=== PATIENT | female | born 1975 | race Caucasian/White ===

== ENCOUNTER 2016-09-30 20:28 | Emergency (ER) | payer OTHER ==
--- NOTE | 2016-09-30 21:48 | ED CLINICAL REPORT ---
Clinical Report - Physicians/Mid Levels [facility] [address] [place] [address] 09/30/2016 20:28 Patient: MARY LOU KILPATRICK Time Seen: 2030; upon arrival, initial patient contact, initial documentation, patient care assumed. Arrived- By private vehicle. Historian- patient. HISTORY OF PRESENT ILLNESS Chief Complaint: COUGH, SINUS PAIN and "FLU". This started about 4 days ago and is still present. It was abrupt in onset. The illness is described as moderate. The patient has had a cough, a sore throat, nasal congestion, sinus pressure and sinus drainage. She has had fever and ear pain. No sputum production, difficulty breathing, chest discomfort or pain or muscle aches. Additional history - The patient has had contact with a sick coworker. Similar symptoms previously: None. Recent medical care: Not recently seen/assessed. REVIEW OF SYSTEMS The patient has had nausea and mild, constant abdominal pain. The pain is described as located in the left lower quadrant. She has had vomiting (none today, several times yesterday). She has had mild diarrhea (x2-3 episodes today). This has occurred several times. It has been watery. No bloody, mucous containing or blood-tinged diarrhea. Denies current . All systems otherwise negative, except as recorded above. PAST HISTORY See nurses notes. PROBLEMS: Hyperemesis Gravidarum. --20:33 Lei Sprague R.N. ADDITIONAL SURGERIES: Appendectomy. Bowel Surgery. Carpal Tunnel Surgery. . Miscarriages. --20:33 Lei Sprague R.N. Partial hysterectomy. --20:34 Lei Sprague R.N. SOCIAL HISTORY Never smoker. Not exposed to second-hand smoke at home. No alcohol use or drug use. No recent travel. Is a local resident. She lives with spouse. FAMILY HISTORY Negative. ADDITIONAL NOTES The nursing notes have been reviewed with agreement regarding the chief complaint, HPI, ROS, PMH and patient medications and allergies. PHYSICAL EXAM Vital Signs: 09/30/2016 20:31 BP: 124/61. HR: 77. RR: 16. O2 saturation: 98%. Temp: 98.3 F. Pain level now: 12/30. Have been reviewed as normal and appear to be correct. Appearance: Alert. No acute distress. Head: Tenderness present to percussion/palpation of the sinuses: mild right and left frontal tenderness, maxillary tenderness, ethmoid tenderness. Eyes: Pupils equal, round and reactive to light. Eyes normal inspection. ENT: Ears normal. Nose abnormal. Pharynx normal. Uvula midline. Normal ear exam. No nasal discharge. Neck: Normal inspection. Neck supple. CVS: Normal heart rate and rhythm. Heart sounds normal. Pulses normal. Respiratory: No respiratory distress. Breath sounds normal. Abdomen: Soft and nontender. No organomegaly. Back: Normal inspection. Skin: Skin warm and dry. Normal skin color. No rash. Normal skin turgor. Extremities: Extremities exhibit normal ROM. No lower extremity edema. Neuro: Oriented X 3. No motor deficit. No sensory deficit. LABS, X-RAYS, AND EKG Laboratory Tests: UA-Culture if indicated: (MANUELA: 09/30/2016 21:05) ( [facility] 09/30/2016 21:34) Final results Test Result Flag Units (Reference) URINE COLOR YELLOW URINE APPEARANCE CLEAR URINE GLUCOSE NEGATIVE (NEGATIVE) URINE BILIRUBIN NEGATIVE (NEGATIVE) URINE KETONE NEGATIVE (NEGATIVE) URINE SPECIFIC GRAVITY 1.015 (1.010-1.030) URINE PH 8.0 (5.0-8.0) URINE PROTEIN NEGATIVE (NEGATIVE) URINE UROBILINOGEN 0.2 EU/dL (0.2-1.0) URINE NITRITE NEGATIVE (NEGATIVE) URINE BLOOD NEGATIVE (NEGATIVE) URINE LEUK ESTERASE NEGATIVE (NEGATIVE) URINE RBC 1-3 rbc/hpf (0-1) URINE WBC 0-1 wbc/hpf (0-1) URINE EPITHELIAL CELLS 1-3 EPI/hpf (0-5) URINE BACTERIA FEW (1+) (NONE SEEN) URINE COMMENT CULT NOT INDICATED 1+ AMOPHOUSURINE CULTURES ARE SET-UP BASED ON THE FOLLOWING CRITERIA:POSITIVE NITRITEPOSITIVE LEUKOCYTE ESTERASEGREATER THAN 10 WHITE BLOOD CELLSMODERATE (2+) OR GREATER BACTERIA Urine: (MANUELA: 09/30/2016 21:05) ( MsgRcvd 09/30/2016 21:29) Final results Test Result Flag Units (Reference) URINE NEGATIVE CBC w Diff: (MANUELA: 09/30/2016 20:50) ( [facility] 09/30/2016 21:06) Final results Test Result Flag Units (Reference) WHITE BLOOD COUNT 9.1 K/uL (4.5-11.5) RED BLOOD COUNT 5.24 H M/uL (4.00-5.20) HEMOGLOBIN 12.3 gm/dL (12.0-16.0) HEMATOCRIT 38.1 % (36.0-46.0) MEAN CELL VOLUME 73 L fL (80-100) MEAN CORPUSCULAR HGB 23 L pg (26-34) MEAN CORPUSCULAR HGB CONC 32 g/dL (31-37) RED CELL DISTRIBUTION WIDTH 17.0 H % (11.6-14.8) PLATELET COUNT 301 K/uL (150-400) NEUTROPHIL % 66.1 % (50-75) LYMPH % 25.7 % (25-40) MONO % 5.5 % (3-14) EOSINOPHIL % 2.0 % (0-4) BASOPHIL % 0.7 % (0-2) CMP: (MANUELA: 09/30/2016 20:50) ( NegRcvd 09/30/2016 21:34) Final results Test Result Flag Units (Reference) GLUCOSE 103 mg/dL (70-110) BUN 16 mg/dL (7-18) CREATININE 0.8 mg/dL (0.6-1.3) Estimated GFR >60 mL/min Estimated GFR- >60 mL/min Note: Persistent reduction over 3 months in eGFR<60 mL/min/1.73 m2 defines CKD. Patients with eGFR values>=60 mL/min/1.73 m2 may also have CKD if evidence ofpersistent proteinuria. Additional information may be foundat www.kidney.org. SODIUM 143 mmol/L (136-145) POTASSIUM 4.1 mmol/L (3.5-5.1) CHLORIDE 106 mmol/L (98-107) CARBON DIOXIDE 30 mmol/L (21-32) CALCIUM 8.9 mg/dL (8.5-10.1) TOTAL PROTEIN 7.3 g/dL (6.4-8.2) ALBUMIN 3.6 g/dL (3.3-5.0) BILIRUBIN, TOTAL 0.1 mg/dL (0.0-1.0) ALKALINE PHOSPHATASE 86 U/L (46-116) AST (SGOT) 11 L U/L (15-37) ALT (SGPT) 17 U/L (12-78) LIPASE 124 U/L (73-393) AMYLASE 37 U/L (25-115) Rapid Influenza Screen: (MANUELA: 09/30/2016 20:36) ( MsgRcvd 09/30/2016 21:26) Final results SPECIMEN DESCRIPTION: NARES Test Result Flag Units (Reference) RAPID INFLUENZA SCREEN DATE: 09/30/16 INFLUENZA A: NEGATIVE SCREEN FOR INFLUENZA A INFLUENZA B: NEGATIVE SCREEN FOR INFLUENZA B . PROGRESS AND PROCEDURES Patient counseled in person regarding the patient's stable condition, test results and diagnosis. 21:47. Differential Diagnosis: I considered gastritis, gastroenteritis, peptic ulcer disease, gastroesophageal reflux disease, mesenteric lymphadenitis, diverticulitis, colon cancer, ulcerative colitis, Crohn's disease, small bowel obstruction, adhesions, obstipation, hepatitis, pancreatitis, urinary tract infection, ureterolithiasis, and viral syndrome as a possible cause of abdominal pain in this patient. This is a partial list of diagnoses considered. (flu, uri, bronchitis, pneumonia, sinusitis). Above considerations are based on history, physical exam, reassessment and laboratory data. Differential diagnosis was discussed with patient. Disposition: Discharged home in good and improved condition (21:48). Condition: good and stable. CLINICAL IMPRESSION Acute sinusitis. No airway obstruction. Acute noninfectious gastroenteritis. INSTRUCTIONS Warnings: GENERAL WARNINGS: Return or contact your physician immediately if your condition worsens or changes unexpectedly, if not improving as expected, or if other problems arise. Specifically return if problem worsens. Prescription Medications: Zofran 4 mg: Take 1 orally every six hours as needed for nausea/vomiting. Dispense ten (10). No refills. Substitution is permissible. Follow-up: Follow up with your doctor in about three days even if well. Call for an appointment. Summary of care provided to patient. Understanding of the discharge instructions verbalized by patient. (Electronically signed by Viviana Barnard A.R.N.P. 09/30/2016 22:18)
--- NOTE | 2016-09-30 21:49 | ED NURSING NOTES ---
Clinical Report - Nurses [facility] [place] [address] 09/30/2016 20:28 Patient: MARY LOU KILPATRICK TRIAGE Triage time 20:Sep 30 2016. Chief Complaint: FEVER, HEADACHE, DIZZINESS, WEAKNESS, EAR PAIN, NAUSEA, VOMITING and DIARRHEA. Alert. No acute distress. SEPSIS SCREEN: Sepsis Screen. Negative (no infection suspected/documented). --20:35 Lei Sprague R.N. 20:31 09/30/16. BP: 124/61. HR: 77. RR: 16. O2 saturation: 98% on room air. Temp: 98.3 F. Pain level now: 12/30. --20:35 Lei Sprague R.N. Chief Complaint: (Pt has had a sore throat, cough, difficulty hearing from R ear along with N/V/D and LLQ abd pain.). --21:33 Lei Sprague R.N. Weight: 86.1 kg stated. Height/Length: 61 inches Per Patient. BMI: 35.9. --20:30 Lei Sprague R.N. Medications None. --20:32 Lei Sprague R.N. Allergies Tomatoes. --20:32 Lei Sprague R.N. Vicodin. --20:32 Lei Sprague R.N. Penicillin. --20:32 Lei Sprague R.N. History Arrived by private vehicle. Historian: patient. Accompanied by family. Onset. (Tuesday). She has had fever and weakness. PAST MEDICAL HX: No history of diabetes mellitus or hypertension. SOCIAL HX: Never smoker. No alcohol use or drug use. No infectious disease exposure. FALL RISK ASSESSMENT: Fall risk assessment completed. No fall risk identified. NUTRITIONAL RISK ASSESSMENT: The nutritional risk assessment revealed no deficiencies. FUNCTIONAL ASSESSMENT: Functional assessment: no impairments noted. LEARNING NEEDS ASSESSMENT: The learning needs assessment revealed no barriers. SKIN INTEGRITY ASSESSMENT: Skin integrity risk assessment completed. No skin integrity risk identified. --20:35 Lei Sprague R.N. PROBLEMS: Hyperemesis Gravidarum. --20:33 Lei Sprague R.N. ADDITIONAL SURGERIES: Appendectomy. Bowel Surgery. Carpal Tunnel Surgery. . Miscarriages. --20:33 Lei Sprague R.N. Partial hysterectomy. --20:34 Lei Sprague R.N. PHYSICAL ASSESSMENT Ambulatory to room. GENERAL / NEURO / PSYCH: Alert. Oriented X 4. Appears in no acute distress. HEENT: Pupils equal, round and reactive to light. RESPIRATORY: Respirations not labored. CVS: Pulses within normal limits. GI / : Abdomen soft. SKIN: Skin is warm and dry. Normal skin turgor. --20:36 Lei Sprague R.N. NURSING PROGRESS NOTES The plan of care for this patient has been created. Patient gowned. Head of bed elevated. Reassurance given. Two patient identifiers checked. Call light placed in reach. Bed placed in lowest position. Patient ready for evaluation- BRIDGE REPAIR CREW PERSON notified. --20:36 Lei Sprague R.N. ( BRIDGE REPAIR CREW PERSON in to assess Pt, at bedside.). --20:38 Lei Sprague R.N. Patient ID band checked for patient name and birthdate: patient confirmed. Flu swab obtained by RN via nasal swab. Labeled in the presence of the patient and sent to lab. --20:38 Lei Sprague R.N. 20:55 09/30/2016 Site #1 started via IV in the left antecubital space with an 20g angiocath, with aseptic technique and good blood return; one attempt. Blood drawn: rainbow set. Labeled in the presence of the patient and sent to the lab. Saline lock flushed with 10 mL saline. --20:55 Lei Sprague R.N. 21:01 09/30/2016 Started IV Fluids IV NS (Saline); bolus of 1000 mL over 1 hour(s) via site #1 via IV pump. Allergies verified and confirmed 5 rights. IV patency established. IV site checked: no pain, redness, or swelling. IV flushed thoroughly pre- and post-medication administration. --21:01 Edmundo Greenberg R.N. 21:02 09/30/2016 Toradol IVP 30 mg given over 2 minute(s) via site #1. Allergies verified and confirmed 5 rights. IV patency established. IV site checked: no pain, redness, or swelling. IV flushed thoroughly pre- and post-medication administration. IVP given by RN. --21:02 Edmundo Greenberg R.N. ( Ordered meds given, IV in place, Pt resting comfortably, S/O at bedside, no needs.). --21:08 Lei Sprague R.N. Patient ID band checked for patient name and birthdate: patient confirmed. Instructions provided to collect clean catch urine and patient verbalized understanding. Clean catch urine collected with return of yellow-colored urine; sample sent to lab for urinalysis. Specimen labeled in the presence of the patient. --21:29 Lei Sprague R.N. 21:57 09/30/2016 IV Fluids IV NS Discontinued: bag #1 completed upon discharge. Total amount infused: 1000 mL. --21:57 Tala Henry. DISPOSITION / DISCHARGE 21:54 09/30/16. BP: 115/59. HR: 66. RR: 18. O2 saturation: 100% on room air. Temp: 98.1 F (oral). Pain level now: 12/30. --21:57 Tala Henry 21:57 09/30/2016 Site #1 removed upon discharge. Catheter intact. Bandaid applied. --:57 Tala Henry 21:57 09/30/16. Condition at departure: stable. The goals identified in the patient's plan of care were met. No learning barriers present. Discharge instructions provided and reviewed with the patient. Reviewed medication(s) side effects, precautions, dosing and course information. Prescription(s) given to the patient. Reviewed need for increased fluid intake. Patient verbalized understanding. Written instructions provided in [place]. ( Rest and follow up with your PCP in three days. Return if symptoms worsen. Rest and increase fluids. Treat pain with anti-inflammatories. Patient verbalized understanding and had no additional questions at this time.). The patient was discharged by the nurse practitioner. She was discharged home and accompanied by spouse. She left the Emergency Department ambulatory and via private vehicle. Spouse driving. FALL RISK ASSESSMENT: Fall risk assessment completed. No fall risk identified. --21:57 Tala Henry. Locked/Released at 09/30/2016 22:24 by Lei Sprague R.N.
--- NOTE | 2016-09-30 21:49 | ED NURSING NOTES ---
Clinical Report - Nurses [facility] [place] [address] 09/30/2016 20:28 Patient: MARY LOU KILPATRICK TRIAGE Triage time 20:Sep 30 2016. Chief Complaint: FEVER, HEADACHE, DIZZINESS, WEAKNESS, EAR PAIN, NAUSEA, VOMITING and DIARRHEA. Alert. No acute distress. SEPSIS SCREEN: Sepsis Screen. Negative (no infection suspected/documented). --20:35 Lei Sprague R.N. 20:31 09/30/16. BP: 124/61. HR: 77. RR: 16. O2 saturation: 98% on room air. Temp: 98.3 F. Pain level now: 12/30. --20:35 Lei Sprague R.N. Chief Complaint: (Pt has had a sore throat, cough, difficulty hearing from R ear along with N/V/D and LLQ abd pain.). --21:33 Lei Sprague R.N. Weight: 86.1 kg stated. Height/Length: 61 inches Per Patient. BMI: 35.9. --20:30 Lei Sprague R.N. Medications None. --20:32 Lei Sprague R.N. Allergies Tomatoes. --20:32 Lei Sprague R.N. Vicodin. --20:32 Lei Sprague R.N. Penicillin. --20:32 Lei Sprague R.N. History Arrived by private vehicle. Historian: patient. Accompanied by family. Onset. (Tuesday). She has had fever and weakness. PAST MEDICAL HX: No history of diabetes mellitus or hypertension. SOCIAL HX: Never smoker. No alcohol use or drug use. No infectious disease exposure. FALL RISK ASSESSMENT: Fall risk assessment completed. No fall risk identified. NUTRITIONAL RISK ASSESSMENT: The nutritional risk assessment revealed no deficiencies. FUNCTIONAL ASSESSMENT: Functional assessment: no impairments noted. LEARNING NEEDS ASSESSMENT: The learning needs assessment revealed no barriers. SKIN INTEGRITY ASSESSMENT: Skin integrity risk assessment completed. No skin integrity risk identified. --20:35 Lei Sprague R.N. PROBLEMS: Hyperemesis Gravidarum. --20:33 Lei Sprague R.N. ADDITIONAL SURGERIES: Appendectomy. Bowel Surgery. Carpal Tunnel Surgery. . Miscarriages. --20:33 Lei Sprague R.N. Partial hysterectomy. --20:34 Lei Sprague R.N. PHYSICAL ASSESSMENT Ambulatory to room. GENERAL / NEURO / PSYCH: Alert. Oriented X 4. Appears in no acute distress. HEENT: Pupils equal, round and reactive to light. RESPIRATORY: Respirations not labored. CVS: Pulses within normal limits. GI / : Abdomen soft. SKIN: Skin is warm and dry. Normal skin turgor. --20:36 Lei Sprague R.N. NURSING PROGRESS NOTES The plan of care for this patient has been created. Patient gowned. Head of bed elevated. Reassurance given. Two patient identifiers checked. Call light placed in reach. Bed placed in lowest position. Patient ready for evaluation- PULP BLEACHER notified. --20:36 Lei Sprague R.N. ( PULP BLEACHER in to assess Pt, at bedside.). --20:38 Lei Sprague R.N. Patient ID band checked for patient name and birthdate: patient confirmed. Flu swab obtained by RN via nasal swab. Labeled in the presence of the patient and sent to lab. --20:38 Lei Sprague R.N. 20:55 09/30/2016 Site #1 started via IV in the left antecubital space with an 20g angiocath, with aseptic technique and good blood return; one attempt. Blood drawn: rainbow set. Labeled in the presence of the patient and sent to the lab. Saline lock flushed with 10 mL saline. --20:55 Lei Sprague R.N. 21:01 09/30/2016 Started IV Fluids IV NS (Saline); bolus of 1000 mL over 1 hour(s) via site #1 via IV pump. Allergies verified and confirmed 5 rights. IV patency established. IV site checked: no pain, redness, or swelling. IV flushed thoroughly pre- and post-medication administration. --21:01 Edmundo Greenberg R.N. 21:02 09/30/2016 Toradol IVP 30 mg given over 2 minute(s) via site #1. Allergies verified and confirmed 5 rights. IV patency established. IV site checked: no pain, redness, or swelling. IV flushed thoroughly pre- and post-medication administration. IVP given by RN. --21:02 Edmundo Greenberg R.N. ( Ordered meds given, IV in place, Pt resting comfortably, S/O at bedside, no needs.). --21:08 Lei Sprague R.N. Patient ID band checked for patient name and birthdate: patient confirmed. Instructions provided to collect clean catch urine and patient verbalized understanding. Clean catch urine collected with return of yellow-colored urine; sample sent to lab for urinalysis. Specimen labeled in the presence of the patient. --21:29 Lei Sprague R.N. 21:57 09/30/2016 IV Fluids IV NS Discontinued: bag #1 completed upon discharge. Total amount infused: 1000 mL. --21:57 Tala Henry. DISPOSITION / DISCHARGE 21:54 09/30/16. BP: 115/59. HR: 66. RR: 18. O2 saturation: 100% on room air. Temp: 98.1 F (oral). Pain level now: 12/30. --21:57 Tala Henry 21:57 09/30/2016 Site #1 removed upon discharge. Catheter intact. Bandaid applied. --:57 Tala Henry 21:57 09/30/16. Condition at departure: stable. The goals identified in the patient's plan of care were met. No learning barriers present. Discharge instructions provided and reviewed with the patient. Reviewed medication(s) side effects, precautions, dosing and course information. Prescription(s) given to the patient. Reviewed need for increased fluid intake. Patient verbalized understanding. Written instructions provided in [place]. ( Rest and follow up with your PCP in three days. Return if symptoms worsen. Rest and increase fluids. Treat pain with anti-inflammatories. Patient verbalized understanding and had no additional questions at this time.). The patient was discharged by the nurse practitioner. She was discharged home and accompanied by spouse. She left the Emergency Department ambulatory and via private vehicle. Spouse driving. FALL RISK ASSESSMENT: Fall risk assessment completed. No fall risk identified. --21:57 Tala Henry. Locked/Released at 09/30/2016 22:24 by Lei Sprague R.N.
--- NOTE | 2016-09-30 21:49 | ED ORDER SUMMARY ---
..... Patient: MARY LOU KILPATRICK OrderSheet [facility] VisitID: [id number] [address] [place] [address] 41y, F Registration Date/Time: 09/30/2016 ORDER SHEET Weight: 86.1 kg (stated) Allergies: Tomatoes, Vicodin, Penicillin GENERAL ORDERS: CBC w Diff Urgent (20:42 09/30/2016 HBivens A.R.N.P.) (Ack 20:46 LMuller) (20:55 MCook R.N.) CMP Urgent (20:42 09/30/2016 HBivens A.R.N.P.) (Ack 20:46 LMuller) (20:55 MCook R.N.) UA-Culture if indicated Urgent (20:42 09/30/2016 HBivens A.R.N.P.) (Ack 20:46 LMuller) (21:29 MCook R.N.) Amylase Urgent (20:42 09/30/2016 HBivens A.R.N.P.) (Ack 20:46 LMuller) (20:55 MCook R.N.) Lipase Urgent (20:42 09/30/2016 HBivens A.R.N.P.) (Ack 20:46 LMuller) (20:55 MCook R.N.) Urine Urgent (20:42 09/30/2016 HBivens A.R.N.P.) (Ack 20:46 LMuller) (20:55 MCook R.N.) Rapid Influenza Screen (Nasal Pharyngeal) (nares) Urgent (20:57 09/30/2016 HBivens A.R.N.P.) (Ack 20:58 LMuller) (20:59 MCook R.N.) MEDICATION ORDERS: IV FLUIDS: Toradol IV 30 mg (NOW) (20:42 09/30/2016 HBivens A.R.N.P.) (Ack 20:57 CHernandez R.N.) (21:02 CHernandez R.N.) IV Saline Lock (20:42 09/30/2016 HBivens A.R.N.P.) (20:55 Elder Ibrahim.N.) IV NS : initial bolus 1000 mL (1000 mL/hr), then none - (NOW) (20:43 09/30/2016 SURIivendale A.R.N.P.) (Ack 20:57 Amish R.N.) (21:01 Amish R.N.) ORDER SHEET NOTES: [Electronically signed by Viviana BarnardR.N.PMily (22:18 09/30/2016)] [Electronically signed by Lei Sprague R.N. (22:24 09/30/2016)] [Electronically locked/signed by Lei Sprague R.N. (22:24 09/30/2016)]
--- NOTE | 2016-09-30 21:49 | ED ORDER SUMMARY ---
..... Patient: MARY LOU KILPATRICK OrderSheet [facility] VisitID: [id number] [address] [place] [address] 41y, F Registration Date/Time: 09/30/2016 ORDER SHEET Weight: 86.1 kg (stated) Allergies: Tomatoes, Vicodin, Penicillin GENERAL ORDERS: CBC w Diff Urgent (20:42 09/30/2016 HBivens A.R.N.P.) (Ack 20:46 LMuller) (20:55 MCook R.N.) CMP Urgent (20:42 09/30/2016 HBivens A.R.N.P.) (Ack 20:46 LMuller) (20:55 MCook R.N.) UA-Culture if indicated Urgent (20:42 09/30/2016 HBivens A.R.N.P.) (Ack 20:46 LMuller) (21:29 MCook R.N.) Amylase Urgent (20:42 09/30/2016 HBivens A.R.N.P.) (Ack 20:46 LMuller) (20:55 MCook R.N.) Lipase Urgent (20:42 09/30/2016 HBivens A.R.N.P.) (Ack 20:46 LMuller) (20:55 MCook R.N.) Urine Urgent (20:42 09/30/2016 HBivens A.R.N.P.) (Ack 20:46 LMuller) (20:55 MCook R.N.) Rapid Influenza Screen (Nasal Pharyngeal) (nares) Urgent (20:57 09/30/2016 HBivens A.R.N.P.) (Ack 20:58 LMuller) (20:59 MCook R.N.) MEDICATION ORDERS: IV FLUIDS: Toradol IV 30 mg (NOW) (20:42 09/30/2016 HBivens A.R.N.P.) (Ack 20:57 CHernandez R.N.) (21:02 CHernandez R.N.) IV Saline Lock (20:42 09/30/2016 HBivens A.R.N.P.) (20:55 Elder Ibrahim.N.) IV NS : initial bolus 1000 mL (1000 mL/hr), then none - (NOW) (20:43 09/30/2016 SURIivendale A.R.N.P.) (Ack 20:57 Amish R.N.) (21:01 Amish R.N.) ORDER SHEET NOTES: [Electronically signed by Viviana BarnardR.N.PMily (22:18 09/30/2016)] [Electronically signed by Lei Sprague R.N. (22:24 09/30/2016)] [Electronically locked/signed by Lei Sprague R.N. (22:24 09/30/2016)]
--- NOTE | 2016-09-30 22:25 | ED DISCHARGE INSTRUCTIONS ---
Patient: MARY LOU KILPATRICK General Instructions [facility] VisitID: [id number] [place] [address] 41y, F Registration Date/Time: 09/30/2016 Acute sinusitis. No airway obstruction. Acute noninfectious gastroenteritis. INSTRUCTIONS Warnings: GENERAL WARNINGS: Return or contact your physician immediately if your condition worsens or changes unexpectedly, if not improving as expected, or if other problems arise. Specifically return if problem worsens. Prescription Medications: Zofran 4 mg: Take 1 orally every six hours as needed for nausea/vomiting. Dispense ten (10). No refills. Substitution is permissible. Follow-up: Follow up with your doctor in about three days even if well. Call for an appointment. Summary of care provided to patient. Understanding of the discharge instructions verbalized by patient. ADDITIONAL INFORMATION Viral Respiratory Illness [Adult] You have an Upper Respiratory Illness (URI) caused by a virus. This illness is contagious during the first few days. It is spread through the air by coughing and sneezing or by direct contact (touching the sick person and then touching your own eyes, nose or mouth). Most viral illnesses go away within 7-10 days with rest and simple home remedies. Sometimes, the illness may last for several weeks. Antibiotics will not kill a virus and are generally not prescribed for this condition. Home Care: 1) If symptoms are severe, rest at home for the first 2-3 days. When you resume activity, don't let yourself get too tired. 2) Avoid being exposed to cigarette smoke (yours or others). 3) Tylenol (acetaminophen) or ibuprofen (Advil, Motrin) will help fever, muscle aching and headache. (Persons under 18 with fever should not take aspirin since this may cause liver damage.) 4) Your appetite may be poor, so a light diet is fine. Avoid dehydration by drinking 6-8 glasses of fluids per day (water, soft drinks, juices, tea, soup). Extra fluids will help loosen secretions in the nose and lungs. 5) Pipr-sby-siekwet cold medicines will not shorten the length of time youre sick, but they may be helpful for the following symptoms: cough (Robitussin DM); sore throat (Chloraseptic lozenges or spray); nasal and sinus congestion (Actifed, Sudafed, Chlortrimeton). Follow Up with your doctor or as advised if you dont improve over the next week. Get Prompt Medical Attention if any of the following occur: -- Cough with lots of colored sputum (mucus) or blood in your sputum -- Chest pain, shortness of breath, wheezing or have trouble breathing -- Severe headache; face, neck or ear pain -- Fever over 100.4 F (38.0 C) for more than three days -- You cant swallow due to throat pain Gastroenteritis [Non-Infectious, 6 Yr-Adult] Your symptoms today are coming from the intestinal tract. This may occur as a result of food sensitivity, inflammation of the GI tract, medicines, stress or other causes not related to infection. This may last from 1-3 days. Antibiotics are not effective, but simple home treatment will be helpful. Home Care: If symptoms are severe, rest at home for the next 24 hours. You may use acetaminophen (Tylenol) or ibuprofen (Motrin, Advil) to control fever, unless another medicine was prescribed. [NOTE: If you have chronic liver or kidney disease or ever had a stomach ulcer or GI bleeding, talk with your doctor before using these medicines.] (Aspirin should never be used in anyone under 18 years of age who is ill with a fever. It may cause severe liver damage.) Avoid tobacco and alcohol use, which may make your symptoms worse. If medicines for diarrhea or vomiting were prescribed, take only as directed. Once vomiting stops, then follow these guidelines: During The First 12-24 Hours follow the diet below: gingerale, mineral water (plain or flavored), decaffeinated tea and coffee. During The Next 24 Hours you may add the following to the above: DURING THE NEXT 24 HOURS Gradually resume a normal diet, as you feel better and your symptoms lessen. Follow Up with your doctor as advised if you are not improving over the next 2-3 days. If a stool (diarrhea) sample was taken, you may call in 2 days (or as directed) for the results. Get Prompt Medical Attention if any of the following occur: Increasing abdominal pain or constant lower right abdominal pain Continued vomiting (unable to keep liquids down) Frequent diarrhea (more than 5 times a day) Blood in vomit or stool (black or red color) Reduced oral intake Dark urine, reduced urine output Weakness, dizziness, fainting Drowsiness, confusion, stiff neck or seizure Fever of 100.4F (38C) or higher, or as directed by your healthcare provider New rash Ondansetron Oral disintegrating tablet What is this medicine? ONDANSETRON (on HAY se billy) is used to treat nausea and vomiting caused by chemotherapy. It is also used to prevent or treat nausea and vomiting after surgery. How should I use this medicine? These tablets are made to dissolve in the mouth. Do not try to push the tablet through the foil backing. With dry hands, peel away the foil backing and gently remove the tablet. Place the tablet in the mouth and allow it to dissolve, then swallow. While you may take these tablets with water, it is not necessary to do so. Talk to your finance teacher regarding the use of this medicine in children. Special care may be needed. What side effects may I notice from receiving this medicine? Side effects that you should report to your doctor or health child care associate teacher as soon as possible: allergic reactions like skin rash, itching or hives, swelling of the face, lips, or tongue breathing problems dizziness fast or irregular heartbeat feeling faint or lightheaded, falls fever and chills swelling of the hands and feet tightness in the chest Side effects that usually do not require medical attention (report to your doctor or health child care associate teacher if they continue or are bothersome): constipation or diarrhea headache What may interact with this medicine? Do not take this medicine with any of the following medications: -apomorphine -cisapride -dofetilide -dronedarone -pimozide -thioridazine -ziprasidone This medicine may also interact with the following medications: -carbamazepine -phenytoin -rifampicin -tramadol -other medicines that prolong the QT interval (cause an abnormal heart rhythm) What if I miss a dose? If you miss a dose, take it as soon as you can. If it is almost time for your next dose, take only that dose. Do not take double or extra doses. Where should I keep my medicine? Keep out of the reach of children. Store between 2 and 30 degrees C (36 and 86 degrees F). Throw away any unused medicine after the expiration date. What should I tell my health care provider before I take this medicine? They need to know if you have any of these conditions: heart disease history of irregular heartbeat liver disease low levels of magnesium or potassium in the blood an unusual or allergic reaction to ondansetron, granisetron, other medicines, foods, dyes, or preservatives or trying to get breast-feeding What should I watch for while using this medicine? Check with your doctor or health child care associate teacher as soon as you can if you have any sign of an allergic reaction. You have been given the following additional information: Uri, Viral, No Abx (Adult) Gastroenteritis, Non-Infectious (Child) (Adult) Ondansetron Oral disintegrating tablet (Electronically signed by Viviana Barnard A.R.N.P. 09/30/2016 22:18)
--- NOTE | 2016-09-30 22:25 | ED MED RECONCILIATION SUMMARY ---
Patient: MARY LOU KILPATRICK Medication Reconciliation Report [facility] VisitID: [id number] [address] [place] [address] 41y, F Registration Date/Time: 09/30/2016 Weight: 86.1 kg Height/Length: 61 in. BMI: 35.9 ALLERGIES: Penicillin, Tomatoes, Vicodin The patient's Home Medications are listed below: NONE. The source(s) of the original Home Medication information: Not obtained. The following Medications were given to the patient in the Emergency Department: IV NS IV Fluids bolus 1000 mL over 1 hour(s), administered: 09/30/2016 9:01:00 PM Toradol [IVP] IVP 30 mg, administered: 09/30/2016 9:02:00 PM The following Medications were prescribed to the patient: Zofran 4 mg: Take 1 orally every six hours as needed for nausea/vomiting. Dispense ten (10). No refills. Substitution is permissible. -- Viviana Barnard A.R.N.P.
--- NOTE | 2016-09-30 22:25 | ED MED RECONCILIATION SUMMARY ---
Patient: MARY LOU KILPATRICK Medication Reconciliation Report [facility] VisitID: [id number] [address] [place] [address] 41y, F Registration Date/Time: 09/30/2016 Weight: 86.1 kg Height/Length: 61 in. BMI: 35.9 ALLERGIES: Penicillin, Tomatoes, Vicodin The patient's Home Medications are listed below: NONE. The source(s) of the original Home Medication information: Not obtained. The following Medications were given to the patient in the Emergency Department: IV NS IV Fluids bolus 1000 mL over 1 hour(s), administered: 09/30/2016 9:01:00 PM Toradol [IVP] IVP 30 mg, administered: 09/30/2016 9:02:00 PM The following Medications were prescribed to the patient: Zofran 4 mg: Take 1 orally every six hours as needed for nausea/vomiting. Dispense ten (10). No refills. Substitution is permissible. -- Viviana Barnard A.R.N.P.
--- NOTE | 2016-09-30 22:25 | ED MAR SUMMARY ---
..... Medication Administration Record [facility] [address] [place] [address] Patient: MARY LOU KILPATRICK Visit ID: [id number] 41y, F Weight: 86.1 kg Height/Length: 61 in BMI: 35.9 ALLERGIES: Penicillin, Vicodin, Tomatoes Start 21:01 09/30/2016 Edmundo Greenberg R.N., Stop 21:57 09/30/2016 Tala Henry, Medication Administered: IV NS (SALINE), Dose: IV Fluids, Bolus: 1000 mL over 1 hour(s), Site: #1 left AC. Medication Ordered: IV NS : initial bolus 1000 mL (1000 mL/hr), then none - (NOW). Given 21:02 09/30/2016 Edmundo Greenberg R.N. Medication Administered: TORADOL [IVP], Dose: 30 mg IVP over 2 minute(s), Site: #1 left AC. Medication Ordered: Toradol IV 30 mg (NOW).
--- NOTE | 2016-09-30 22:25 | ED MAR SUMMARY ---
..... Medication Administration Record [facility] [address] [place] [address] Patient: MARY LOU KILPATRICK Visit ID: [id number] 41y, F Weight: 86.1 kg Height/Length: 61 in BMI: 35.9 ALLERGIES: Penicillin, Vicodin, Tomatoes Start 21:01 09/30/2016 Edmundo Greenberg R.N., Stop 21:57 09/30/2016 Tala Henry, Medication Administered: IV NS (SALINE), Dose: IV Fluids, Bolus: 1000 mL over 1 hour(s), Site: #1 left AC. Medication Ordered: IV NS : initial bolus 1000 mL (1000 mL/hr), then none - (NOW). Given 21:02 09/30/2016 Edmundo Greenberg R.N. Medication Administered: TORADOL [IVP], Dose: 30 mg IVP over 2 minute(s), Site: #1 left AC. Medication Ordered: Toradol IV 30 mg (NOW).
== END 2016-09-30 21:50 | disposition home or self-care (01) ==
LOC: ED SRH 20:28
DX: J01.90 Acute sinusitis, unspecified (principal); K52.9 Noninfective gastroenteritis and colitis, unspecified
CPT/HCPCS: 90004; 90100; 91400; 92235; 92530; 93070; 95059